=== PATIENT | female | born 1995 | race Caucasian/White ===

== ENCOUNTER 2023-05-02 12:09 | Inpatient (IN) ==
[2023-05-02] MEDS ORDERED: OXYTOCIN 30 UNITS/NSS 30 UNITS/500 ML BAG IV PRN ×3 (12:25→21:29)
[2023-05-02] MEDS ORDERED: LIDOCAINE 1% LOCAL 20 ML VIAL INFIL PRN (12:25)
[2023-05-02 13:10] LABS: Hematocrit (blood only) 34.9 % (37.0-47.0); Hemoglobin 11.5 g/dl (12.0-16.0); Mean Corpuscular Hemoglobin 27.4 pg (25.0-34.0); Mean Corpuscular Volume 83.3 fL (80.0-100.0); Mean Platelet Volume 9.8 fL (9.4-12.4); Platelet Count 208 K/uL (130-400); RDW Coefficient of Variation 14.5 % (11.5-14.5); RDW Standard Deviation 43.4 fL (36.4-46.3); Red Blood Count 4.19 M/uL (4.20-5.40); White Blood Count 10.33 K/ul (4.8-10.8)
--- NOTE | 2023-05-02 13:44 | History & Physical Report ---
Date of Service May 02, 2023 Assessment & Plan (1) Uterine contractions at greater than 20 weeks of gestation: Plan: 28-year-old -0-4-1 at 40 weeks of gestation presenting today with increased mucus discharge, uterine contractions, sent from office for labor, Vital signs stable afebrile, heart rate reassuring, GBS negative, Contractions irregular, patient is not painful, desires to eat, Plan to admit, labs, IV fluids, diet for now and then augment labor with oxytocin per protocol, All questions were answered. Admission and Anticipated Discharge Date Admission Date: May 02, 2023 History of Present Illness Primary Care Provider: NO PCP Patient is a 28-year-old -0-4-1 at 40 weeks of gestation who passed a large glob of mucus this morning around 8 AM and then contractions started after that. Contractions have been irregular but some are more painful than others. The mucus was bloody tinged but she denies active bleeding, leakage of fluid, fever chills, headaches, change in her vision, nausea or vomiting. She reports good movements. She went to office for check and she was having painful contractions every 4 to 7 minutes and her cervix was 4 cm dilated with a bulging bag she was sent here for labor. Her has been uncomplicated, GBS negative. Allergies Allergy/AdvReac Type Severity Reaction Status Date / Time kiwi Allergy Numbness Verified 03/28/23 16:16 Home Medications Medication Instructions Recorded Confirmed Type prenat.vits,emelyn,[id number] 1 tab PO DAILY 03/28/23 05/02/23 History Patient History Surgical History History of wisdom tooth extraction Family History Other No known health problems Social History Smoking Status: Never smoker Hx Alcohol Use: No Hx Substance Use: No Preferred Language: Pashto Communication Ability: Effective [employer]ier Ticket Selling Required: No Beliefs That Will Affect Care: None marital status: Current Living Situation: Spouse Current Living Situation Comment: and son Other Information That Helps Us Care for You: No Feels Safe at Home: Yes Safety Concerns: Feels Safe At This Time Assistive Devices: None OB History Full-term in 2021 4 spontaneous abortions [employer] History No history of STDs, no history of chlamydia, gonorrhea, herpes. Review of Systems as per Subjective / HPI Physical Exam Constitutional: WD/WN, vitals as above well developed, well nourished and comfortable Gastrointestinal (Abdomen): normal bowel sounds, soft, nontender, no hepatosplenomegaly (Gravid) Genitourinary: normal external appearance OB Exam Abdomen: + vertex Manual OB Exam: + cervical dilation 4 cm, + cervical effacement 50% and + station -2 (Posterior) OB Exam Monitor Tracing: + external uterine monitor used and + category I Results & Data Vital Signs (Past 12 Hours) Vital Signs Temp Pulse Resp BP 05/02/23 12:21 36.7 C 20 05/02/23 12:18 69 130/73
[2023-05-02] MEDS: LACTATED RINGER'S 1,000 ML IV PRN ×2 (17:07→19:33)
--- NOTE | 2023-05-02 18:05 | Obstetrical Progress Note ---
Date of Service May 02, 2023 Assessment & Plan Admission and Anticipated Discharge Date Admission Date: May 02, 2023 Subjective Patient is reevaluated. Ctxs have been irregular, when they come they are more painful, pain 10/10, declines epidural for now. FHR categ I [place]: ctxs q 2-4 min VE; 5/ 70%/ -2, AROM'ed clear fluid Oxytocin at 4 miu/min Continue to monitor closely. Results & Data Vital Signs (Past 12 Hours) Vital Signs Temp Pulse Resp BP 05/02/23 17:13 57 L 05/02/23 17:13 138/64 05/02/23 12:21 36.7 C 20 05/02/23 12:18 69 130/73
[2023-05-02] MEDS ORDERED: ePHEDrine sulfate 50 MG/ML AMP ONE (18:49)
[2023-05-02] MEDS ORDERED: fentaNYL citrate PF 100 MCG/2 ML VIAL ONE (18:49)
[2023-05-02] MEDS ORDERED: SODIUM CHLORIDE 0.9% PF INJ 10 ML VIAL ONE (18:50)
[2023-05-02] MEDS ORDERED: fentANYL 2 MCG/ML BUPIVacaine 0.125%-NSS 100ML BAG ONE (18:50)
[2023-05-02] MEDS ORDERED: BUPIVACAINE 0.25% PF 30 ML VIAL ONE (18:50)
[2023-05-02] MEDS ORDERED: LIDOCAINE 2%/EPINEPHRINE 1:200,000 20 ML PF ONE (18:50)
--- NOTE | 2023-05-02 19:13 | Anesthesiology Consultation ---
Date of Service May 02, 2023 Assessment & Plan (1) Encounter for pre-operative examination: Chart Review Chart Review: Acceptable Risk for Labor Epidural History Height/Weight Height: 5 ft 4 in Weight: 104.326 kg Allergies Allergy/AdvReac Type Severity Reaction Status Date / Time romero Allergy Numbness Verified 03/28/23 16:16 Medications Home Medications Medication Instructions Recorded Confirmed Last Taken prenat.vits,emelyn,[id number] 1 tab PO DAILY 03/28/23 05/02/23 05/02/23 07:00 Active Medications Generic Name Dose Route Start Last Admin Trade Name Freq PRN Reason Stop Dose Admin Lactated Ringer's 1,000 mls @ 150 mls/hr 05/02/23 12:25 05/02/23 18:45 Lr IV 05/04/23 12:24 999 mls/hr .[id number] PRN Infusion L&D Protocol Protocol Oxytocin 30 units in 500 mls @ 4 mls/hr 05/02/23 13:44 05/02/23 17:50 Pitocin 30 Units/Nss IV 05/04/23 13:43 0.24 units/hr .Q24H PRN 4 mls/hr Labor Induction/Augmentation Titration Protocol 0.24 UNITS/HR Past Medical History Medical History (Updated 05/02/23 @ 19:13 by Gonzalez Garcia MD) No pertinent past medical history Past Family History Family History Other No known health problems Past Surgical History Surgical History History of wisdom tooth extraction Social History Smoking Status: Never smoker Hx Alcohol Use: No Hx Substance Use: No Physical Exam Vital Signs Last Vital Signs Temp 36.7 C 05/02/23 12:21 Pulse 73 05/02/23 19:09 Resp 20 05/02/23 12:21 BP 126/68 05/02/23 18:44 Pulse Ox 93 05/02/23 19:09 Testing Laboratory Results 05/02/23 12:50 Blood Type O Positive 05/02/23 12:50 Antibody Screen NEGATIVE 05/02/23 12:50
[2023-05-02] MEDS ORDERED: fentaNYL citrate PF 100 MCG/2 ML VIAL EPI STA (19:42)
[2023-05-02] MEDS ORDERED: LIDOCAINE 2%/EPINEPHRINE 1:200,000 20 ML PF EPI STA (19:42)
[2023-05-02] MEDS ORDERED: fentANYL 2 MCG/ML BUPIVacaine 0.125%-NSS 100ML BAG EPI PRN (19:42)
[2023-05-02] MEDS ORDERED: NALOXONE HCL 0.4 MG/1 ML VIAL/CARP IV PRN (19:42)
[2023-05-02] MEDS ORDERED: BUPIVACAINE 0.25% PF 30 ML VIAL EPI STA (19:42)
[2023-05-02] MEDS ORDERED: BUPIVACAINE 0.25% PF 30 ML VIAL EPI PRN (19:42)
[2023-05-02] MEDS ORDERED: ePHEDrine sulfate 50 MG/ML AMP IV PRN (19:42)
[2023-05-02] MEDS ORDERED: NALOXONE HCL 1 MG in SODIUM CHLORIDE 0.9% 1,000 ML IV PRN (19:42)
[2023-05-02] MEDS ORDERED: SODIUM CHLORIDE 0.9% PF INJ 10 ML VIAL EPI STA (19:42)
[2023-05-02] MEDS ORDERED: ONDANSETRON INJ 2 MG/ML 2 ML VIAL IV PRN (19:42)
[2023-05-02] MEDS ORDERED: LIDOCAINE 2% MPF LOCAL 5 ML VIAL EPI PRN (19:42)
[2023-05-02] MEDS ORDERED: fentaNYL citrate PF 100 MCG/2 ML VIAL EPI PRN (19:42)
[2023-05-02] MEDS ORDERED: SODIUM CHLORIDE 0.9% PF INJ 10 ML VIAL EPI PRN (19:42)
[2023-05-02] MEDS ORDERED: ROPIVACAINE 0.5% PF 5 MG/ML 20 ML VIAL EPI PRN (19:42)
--- NOTE | 2023-05-02 20:16 | Obstetrical Progress Note ---
Date of Service May 02, 2023 Assessment & Plan Admission and Anticipated Discharge Date Admission Date: May 02, 2023 Subjective Patient got more painful and received epidural for pain She is comfortable now VE; unchanged FHR categ I Oxytocin at 4 miu/min Continue to monitor, increase Oxytocin and peanut ball between legs Results & Data Vital Signs (Past 12 Hours) Vital Signs Temp Pulse Resp BP Pulse Ox 05/02/23 20:10 79 05/02/23 20:10 121/56 L 05/02/23 20:07 96 05/02/23 20:07 68 05/02/23 20:06 77 05/02/23 20:06 122/57 L 05/02/23 20:02 98 05/02/23 20:02 65 05/02/23 19:59 68 05/02/23 19:59 108/57 L 05/02/23 19:58 93 05/02/23 19:58 70 05/02/23 19:57 95 05/02/23 19:57 69 05/02/23 19:57 108/52 L 05/02/23 19:55 67 05/02/23 19:55 105/50 L 05/02/23 19:52 96 05/02/23 19:52 71 05/02/23 19:51 68 05/02/23 19:51 162/131 H 05/02/23 19:47 96 05/02/23 19:47 67 05/02/23 19:42 96 05/02/23 19:42 70 05/02/23 19:42 64 05/02/23 19:42 132/58 L 05/02/23 19:39 93 05/02/23 19:39 74 05/02/23 19:39 66 05/02/23 19:39 132/66 05/02/23 19:37 96 05/02/23 19:37 73 05/02/23 19:35 68 05/02/23 19:35 135/60 05/02/23 19:32 96 05/02/23 19:32 82 05/02/23 19:27 97 05/02/23 19:27 92 H 05/02/23 19:23 65 05/02/23 19:23 133/63 05/02/23 19:22 99 05/02/23 19:22 70 05/02/23 19:22 89 L 05/02/23 19:22 74 05/02/23 19:17 98 05/02/23 19:17 72 05/02/23 19:16 89 L 05/02/23 19:16 74 05/02/23 19:12 95 05/02/23 19:12 65 05/02/23 19:09 93 05/02/23 19:09 73 05/02/23 19:07 100 05/02/23 19:07 66 05/02/23 18:44 62 05/02/23 18:44 126/68 05/02/23 17:13 57 L 05/02/23 17:13 138/64 05/02/23 12:21 36.7 C 20 05/02/23 12:18 69 130/73
[2023-05-02] MEDS ORDERED: ACETAMINOPHEN 325 MG TAB PO PRN (21:29)
[2023-05-02] MEDS ORDERED: DIPHTHERIA/TETANUS/PERTUSSIS Vaccine (Tdap, Age 7+yrs) 0.5mL SYR/VL IM ONE (21:29)
[2023-05-02] MEDS ORDERED: HYDROCORTISONE ACETATE 25 MG SUPP PR PRN (21:29)
[2023-05-02] MEDS ORDERED: BENZOCAINE 20% SPRY 85 APPLN/85 GM CAN EXT PRN (21:29)
[2023-05-02] MEDS ORDERED: bisacodyL 10 MG SUPP PR PRN (21:29)
--- NOTE | 2023-05-02 21:33 | Delivery Summary ---
Vaginal Delivery Summary Date of Service May 02, 2023 Vaginal Delivery Summary Patient was found to be fully dilated and desires to push. She pushed with 2 contractions only and delivered the head and then shoulders spontaneously without difficulty. The baby was handed off to the mother. The cord was clampedx2 and cut at 1 minute delay. The vagina and perineum were checked and found to have 2nd degree perineal laceration. It was repaired with 2/0 vicryl. The placenta was delivered spontaneously as intact and complete. The uterus was explored and found to be empty. EBL was 300 ml. The fundus was firm The baby was a viable female , Apgars 8/9, the weight is pending The mother and the baby tolerated the procedure well. No complications happened and I was present during whole procedure.
[2023-05-03 06:26] LABS: Hematocrit (blood only) 33.3 % (37.0-47.0); Hemoglobin 11.2 g/dl (12.0-16.0); Mean Corpuscular Hemoglobin 27.8 pg (25.0-34.0); Mean Corpuscular Hgb Conc 33.6 g/dL (32.0-36.0); Mean Corpuscular Volume 82.6 fL (80.0-100.0); Mean Platelet Volume 10.1 fL (9.4-12.4); Platelet Count 203 K/uL (130-400); RDW Coefficient of Variation 14.5 % (11.5-14.5); RDW Standard Deviation 42.7 fL (36.4-46.3); Red Blood Count 4.03 M/uL (4.20-5.40); White Blood Count 14.31 K/ul (4.8-10.8)
[2023-05-03] MEDS: PRENATAL VITAMIN 1 TAB PO SCH (08:03)
[2023-05-03] MEDS: FERROUS SULFATE 325 MG TAB PO SCH (08:03)
[2023-05-03] MEDS: IBUPROFEN 600 MG TAB PO PRN ×4 (08:03→20:16)
[2023-05-03] MEDS: DOCUSATE SODIUM 100 MG CAP PO SCH ×2 (08:04→20:16)
--- NOTE | 2023-05-03 09:26 | Obstetrical Progress Note ---
Date of Service May 03, 2023 Subjective Ambulation: ambulating normally Voiding: no voiding problems Passing Gas:: Yes Diet Tolerance:: regular diet Lochia:: Small Feeding Type:: breast feeding Current Pain Level(1-10): 0 doing well Physical Exam Constitutional WD/WN, vitals as above Gastrointestinal (Abdomen) Inspection/Auscultation: abdomen normal to inspection abdomen soft and non-tender. fundus firm below U Musculoskeletal Extremities: extremities normal to inspection Skin no rashes, warm and dry Neurologic patellar DTR's 2+ bilat, sensation intact Psychiatric A+Ox3, euthymic affect Results & Data Vital Signs (Past 12 Hours) Vital Signs Temp Pulse Pulse Resp BP BP Pulse Ox 05/03/23 08:00 36.5 C 71 16 104/64 05/03/23 08:00 05/03/23 03:40 36.5 C 62 18 114/69 97 05/03/23 00:15 36.5 C 88 18 123/75 97 05/02/23 23:20 36.8 C 18 05/02/23 23:16 94 H 05/02/23 23:16 113/63 05/02/23 23:01 86 05/02/23 23:01 114/64 05/02/23 22:50 18 05/02/23 22:46 100 H 05/02/23 22:46 125/65 05/02/23 22:22 86 05/02/23 22:22 131/63 05/02/23 22:20 16 05/02/23 22:01 16 05/02/23 22:01 84 05/02/23 22:01 130/64 05/02/23 21:46 16 05/02/23 21:46 90 05/02/23 21:46 135/71 05/02/23 21:31 87 05/02/23 21:31 150/88 H O2 Del Method 05/03/23 08:00 Room Air 05/03/23 08:00 Room Air 05/03/23 03:40 Room Air 05/03/23 00:15 Room Air 05/02/23 23:20 05/02/23 23:16 05/02/23 23:16 05/02/23 23:01 05/02/23 23:01 05/02/23 22:50 05/02/23 22:46 05/02/23 22:46 05/02/23 22:22 05/02/23 22:22 05/02/23 22:20 05/02/23 22:01 05/02/23 22:01 05/02/23 22:01 05/02/23 21:46 05/02/23 21:46 05/02/23 21:46 05/02/23 21:31 05/02/23 21:31 Laboratory Results 05/02/23 05/03/23 12:50 06:02 WBC 10.33 14.31 H RBC 4.19 L 4.03 L Hgb 11.5 L 11.2 L Hct 34.9 L 33.3 L MCV 83.3 82.6 MCH 27.4 27.8 MCHC 33.0 33.6 RDW Std Deviation 43.4 42.7 RDW Coeff of Shelbie 14.5 14.5 Plt Count 208 203 MPV 9.8 10.1 Blood Type O Positive Antibody Screen NEGATIVE
--- NOTE | 2023-05-03 10:23 | Anesthesia Procedure Note ---
Date of Service May 03, 2023 Anesthesia Post Epidural Note Vital Signs Vital Signs: Temp Pulse Resp BP Pulse Ox O2 Del Method 36.5 C 71 16 104/64 97 Room Air 05/03/23 08:00 05/03/23 08:00 05/03/23 08:00 05/03/23 08:00 05/03/23 03:40 05/03/23 08:00 Pain Intensity Lower Abdomen: Pain Intensity: 8 Notes Mental Status: alert / awake / arousable Nausea / Vomiting: adequately controlled Pain: adequately controlled Airway Patency, RR, SpO2: stable & adequate BP & HR: stable & adequate Hydration State: stable & adequate Neuraxial Anesthesia: was administered and sensory block is resolving Anesthetic Complications: no major complications apparent and Pt Satisfied with anesthetic care Epidural: Removed without complications and With tip intact
[2023-05-03] MEDS ORDERED: bisacodyL 5 MG TABEC PO SCH (20:00)
[2023-05-04 06:22] LABS: Hematocrit (blood only) 30.5 % (37.0-47.0); Hemoglobin 10.2 g/dl (12.0-16.0)
[2023-05-04] MEDS: IBUPROFEN 600 MG TAB PO PRN (09:02)
[2023-05-04] MEDS: PRENATAL VITAMIN 1 TAB PO SCH (09:03)
[2023-05-04] MEDS: FERROUS SULFATE 325 MG TAB PO SCH (09:03)
[2023-05-04] MEDS: DOCUSATE SODIUM 100 MG CAP PO SCH (09:03)
--- NOTE | 2023-05-04 09:08 | Obstetrical Progress Note ---
Date of Service May 04, 2023 Assessment & Plan Admission and Anticipated Discharge Date Admission Date: May 02, 2023 Subjective Patient is seen and examined. She feels well, no complaints. Ambulating without dizziness. Voiding without difficulty Tolerating regular diet with out N&V Bleeding is minimal No fever/ chills/ CP/ SOB/ N&V/ Leg pain Breast feeding without problems Vital Signs Temp Pulse Resp BP Pulse Ox O2 Del Method 05/04/23 00:04 36.6 C 75 18 111/69 97 Room Air 05/03/23 19:45 Room Air 05/03/23 19:45 36.6 C 89 18 129/85 99 Room Air 05/03/23 16:25 36.4 C L 78 16 102/49 L 95 Room Air 05/03/23 12:25 36.5 C 61 18 116/74 99 Room Air Lab Results 05/02/23 05/03/23 05/04/23 Range/Units 12:50 06:02 05:37 WBC 10.33 14.31 H (4.8-10.8) K/ul RBC 4.19 L 4.03 L (4.20-5.40) M/uL Hgb 11.5 L 11.2 L 10.2 L (12.0-16.0) g/dl Hct 34.9 L 33.3 L 30.5 L (37.0-47.0) % MCV 83.3 82.6 (80.0-100.0) fL MCH 27.4 27.8 (25.0-34.0) pg MCHC 33.0 33.6 (32.0-36.0) g/dL RDW Std Deviation 43.4 42.7 (36.4-46.3) fL RDW Coeff of Shelbie 14.5 14.5 (11.5-14.5) % Plt Count 208 203 (130-400) K/uL MPV 9.8 10.1 (9.4-12.4) fL Blood Type O Positive Antibody Screen NEGATIVE PE: General: Alert, orientedx3, NAD Abd: soft, NT, fundus firm, below Umbilicus Perineum intact, Lochia rubra minimal Ext; NT, no edema AP: 28 yo s/p , ppd# 2 VSS Afebrile doing well Continue routine care All questions were answered D/C home , f/u in office Results & Data Vital Signs (Past 12 Hours) Vital Signs Temp Pulse Resp BP Pulse Ox O2 Del Method 05/04/23 00:04 36.6 C 75 18 111/69 97 Room Air
== END 2023-05-04 13:56 | disposition home health service (06) | DRG 807 ==
LOC: OPB 12:09 → 4S1 12:12 → 4E2 05-03 00:09